=== PATIENT | female | born 1965 | race Caucasian/White ===

== ENCOUNTER 2021-01-01 09:29 | Day surgery (SDC) | payer OTHER ==
[2020-12-24 14:59] VITALS: BMI 52.6
[2021-01-01] MEDS ORDERED: PROPOFOL 20 ML ONE ×3 (11:19)
[2021-01-01 12:19] VITALS: TEMP 98.1
[2021-01-01 12:22] VITALS: BP 125/61; PULSE 61
== END 2021-01-01 12:20 | disposition home or self-care (01) ==
LOC: FASU-ENDO 09:29
PROVIDERS: ATTEND Internal Medicine Gastroenterology
PROC: 0DB48ZX Excision of Esophagogastric Junction, Via Natural or Artificial Opening Endoscopic, Diagnostic (ICD-10-PCS; 2021-01-01)
PROC: 0DB98ZX Excision of Duodenum, Via Natural or Artificial Opening Endoscopic, Diagnostic (ICD-10-PCS; principal; 2021-01-01 11:28)
DX: K22.8 Other specified diseases of esophagus (principal); K29.50 Unspecified chronic gastritis without bleeding; K31.89 Other diseases of stomach and duodenum
CPT/HCPCS: 84703

== ENCOUNTER 2021-03-05 09:32 | Day surgery (SDC) | payer OTHER ==
[2021-02-28 14:56] VITALS: BMI 48.5
[2021-03-05 09:49] VITALS: TEMP 96.2
[2021-03-05] MEDS ORDERED: LIDOCAINE HCL/PF 2% SDV 5ML VIAL ONE (10:40)
[2021-03-05] MEDS ORDERED: PROPOFOL 20 ML ONE ×3 (10:40)
[2021-03-05 12:22] VITALS: BP 125/65; PULSE 69
== END 2021-03-05 12:00 | disposition home or self-care (01) ==
LOC: FASU-ENDO 09:32
PROVIDERS: ATTEND Internal Medicine Gastroenterology
PROC: 0DJD8ZZ Inspection of Lower Intestinal Tract, Via Natural or Artificial Opening Endoscopic (ICD-10-PCS; principal; 2021-03-05 10:56)
DX: Z12.11 Encounter for screening for malignant neoplasm of colon (principal); K64.0 First degree hemorrhoids; K64.8 Other hemorrhoids
CPT/HCPCS: 82962; 84703

== ENCOUNTER 2024-02-05 07:58 | Day surgery (SDC) | payer OTHER, MEDICARE ==
[2024-01-12 10:40] VITALS: BMI 25.8
[2024-02-05 09:39] VITALS: RESP 20; TEMP 97.4
[2024-02-05 10:30] VITALS: BP 122/74; PULSE 60
== END 2024-02-05 10:00 | disposition home or self-care (01) ==
LOC: FASU-ENDO 07:58
PROVIDERS: ATTEND Internal Medicine Gastroenterology
PROC: 0DB68ZX Excision of Stomach, Via Natural or Artificial Opening Endoscopic, Diagnostic (ICD-10-PCS; 2024-02-05)
PROC: 0DB48ZX Excision of Esophagogastric Junction, Via Natural or Artificial Opening Endoscopic, Diagnostic (ICD-10-PCS; 2024-02-05)
PROC: 0DB98ZX Excision of Duodenum, Via Natural or Artificial Opening Endoscopic, Diagnostic (ICD-10-PCS; principal; 2024-02-05 09:09)
DX: K29.50 Unspecified chronic gastritis without bleeding (principal); K22.89 Other specified disease of esophagus; R10.13 Epigastric pain
CPT/HCPCS: 88305-TC; 88342-TC